=== PATIENT | male | born 1990 | race Caucasian/White ===

== ENCOUNTER 2023-10-26 21:40 | Emergency (ER) | payer OTHER ==
[~2023-10-26] VITALS: Ht 182.9 cm; Wt 77.0 kg
[2023-10-26 21:41] VITALS: TEMP 98
[2023-10-26] MEDS: ondansetron/PF 4mg/2ml inj IV ONE (22:02)
[2023-10-26] MEDS: morphine 4 MG/ML inj SYRINge IV ONE ×2 (22:02→22:37)
[2023-10-26] MEDS: fentaNYL/PF 50MCG/1 ML 2ML syringe IV ONE (23:36)
[2023-10-26] MEDS: acetaminophen 1,000mg/100ml IV 100 ML IV ONE (23:37)
[2023-10-26] MEDS ORDERED: HYDR-3965 PO (23:42)
[2023-10-26] MEDS ORDERED: ONDA8TAB13 PO (23:42)
[2023-10-26] MEDS ORDERED: ketorolac trometh. 30mg/ml inj. IV ONE (23:45)
[2023-10-26] MEDS: ketorolac tromethamine 15mg/ml inj. IV ONE (23:53)
[2023-10-27] VITALS: BP 133/95; PULSE 83; O2SAT 96
[2023-10-27 00:04] VITALS: RESP 17
== END 2023-10-27 00:08 | disposition home or self-care (01) ==
LOC: ER 21:41 → EEVIPCON 21:41 → ER 10-27 00:08
DX: S02.40FA Zygomatic fracture, left side, initial encounter for closed fracture (principal); X58.XXXA Exposure to other specified factors, initial encounter; Y93.89 Activity, other specified; Y92.89 Other specified places as the place of occurrence of the external cause; Y99.8 Other external cause status
CPT/HCPCS: 70450; 70486; 96374; 96375; 96376; 99285; J0131; J1885; J2270; J2405; J3010